=== PATIENT | female | born 1990 | race Caucasian/White ===

== ENCOUNTER → 2020-12-28 | Outpatient (CLI) | payer OTHER ==
--- NOTE | 2020-12-28 10:17 | REP ---
INDICATION: GROWTH, SIZE DATE DISCREPANCY COMPARISON: None. TECHNIQUE: Transabdominal obstetrical ultrasound with color Doppler evaluation. FINDINGS: Examination demonstrates a single live intrauterine in cephalic presentation. motion is identified by technologist. Placenta is noted anterior and grade 2 without evidence for placenta previa or abruption. Amniotic fluid volume is normal. Cervix measures 4.2 cm in length and appears closed.. Selected gestational age: 29 weeks 6 days with MAYKEL 03/09/2021. Gestational age by current measurements 30 weeks 2 days with MAYKEL 03/06/2021. FHR equals 138 beats per minute. BPD: 7.5 cm at 30 weeks 0 days HC: 27.7 cm at 30 weeks 2 days AC: 26.6 cm at 30 weeks 5 days FL: 5.6 cm at 29 weeks 4 days HL: 5.3 cm at 30 weeks 5 days HC/AC: 1.04 Estimated weight 1541 grams (52ndpercentile). HUMBLE: 12.5 cm Umbilical artery SD ratio: 2.11 (1.97-4.12) IMPRESSION: Single live intrauterine in cephalic presentation demonstrating appropriate estimated weight and growth. <Electronically signed by Marquise Tolbert > 12/28/20 1019
== END ==
LOC: M WHC 08:58
PROVIDERS: ATTEND Obstetrics & Gynecology
DX: O26.843 Uterine size-date discrepancy, third trimester (principal); Z3A.29 29 weeks gestation of pregnancy

== ENCOUNTER → 2020-12-28 | Outpatient (CLI) | payer OTHER ==
[2020-12-28 14:04] LABS: HEMATOCRIT 33.3 % (36.0-47.0); HEMOGLOBIN 10.8 g/dl (12.0-15.5); MEAN CORPUSCULAR HGB CONC 32.4 g/dl (32.0-36.5); MEAN CORPUSCULAR VOLUME 89.3 fl (80.0-96.0); PLATELET COUNT, AUTOMATED 214 10^3/uL (150-450); RED BLOOD COUNT 3.73 10^6/uL (4.00-5.40); WHITE BLOOD COUNT 8.5 10^3/uL (4.0-10.0)
[2020-12-28 15:37] LABS: GC DNA AMPLIFICATION NEGATIVE (NEGATIVE)
== END ==
LOC: M PLALAB 09:55
PROVIDERS: ATTEND Obstetrics & Gynecology
DX: Z34.93 Encounter for supervision of normal pregnancy, unspecified, third trimester (principal); Z3A.29 29 weeks gestation of pregnancy

== ENCOUNTER → 2021-01-29 | Outpatient (CLI) | payer OTHER ==
[~2021-01-29] MED LIST: ACET-683 PO; COLA100C5 PO; IBUP-1022 PO
== END ==
LOC: M WHC 12:00
PROVIDERS: ATTEND Advanced Practice Midwife
DX: O46.90 Antepartum hemorrhage, unspecified, unspecified trimester (principal); Z3A.34 34 weeks gestation of pregnancy

== ENCOUNTER → 2021-02-08 | Outpatient (REF) | payer OTHER ==
[2021-02-08 20:31] LABS: GC DNA AMPLIFICATION NEGATIVE (NEGATIVE)
== END ==
LOC: M SFHCWAGY 16:41
PROVIDERS: ATTEND Obstetrics & Gynecology
DX: Z34.83 Encounter for supervision of other normal pregnancy, third trimester (principal)

== ENCOUNTER 2021-02-18 03:35 | Inpatient (IN) | payer OTHER ==
[~2021-02-18] VITALS: Ht 157.5 cm; Wt 66.2 kg
[2021-02-18] VITALS (32 sets, daily range): BP systolic 93–125; BP diastolic 52–82
[2021-02-18] MEDS ORDERED: LACTATED RINGER'S 1000 ML IV STA (04:07)
[2021-02-18] MEDS ORDERED: PENICILLIN G POTASSIUM IV 5 MU in D5W MINI-BAG PLUS 100 ML IV STA (04:07)
[2021-02-18] MEDS ORDERED: LR 1,000 ML IV SCH (04:10)
[2021-02-18 04:24] LABS: HEMATOCRIT 36.6 % (36.0-47.0); HEMOGLOBIN 11.8 g/dl (12.0-15.5); MEAN CORPUSCULAR HGB CONC 32.2 g/dl (32.0-36.5); MEAN CORPUSCULAR VOLUME 80.8 fl (80.0-96.0); PLATELET COUNT, AUTOMATED 231 10^3/uL (150-450); RED BLOOD COUNT 4.53 10^6/uL (4.00-5.40); WHITE BLOOD COUNT 9.8 10^3/uL (4.0-10.0)
[2021-02-18] MEDS ORDERED: FENTANYL 2MCG/ML ROPIVACAINE 0.2% IN 0.9% NACL 100ML IVBAG As Ordered ONE (04:31)
[2021-02-18] MEDS ORDERED: OXYTOCIN 30 UNITS IN 0.9% NaCl 500ML IV BAG (J2590) As Ordered ONE (05:22)
[2021-02-18] MEDS ORDERED: EPIDURAL/PCA KEYS XX PRN (05:25)
[2021-02-18] MEDS ORDERED: diphenhydrAMINE 50MG/ML VIAL (J1200) IV PRN (05:25)
[2021-02-18] MEDS ORDERED: EPIDURAL COMMENT XX SCH (05:25)
[2021-02-18] MEDS ORDERED: ePHEDrine SULFATE 25 MG/5 ML(5MG/ML) SYRINGE IV PRN (05:25)
[2021-02-18] MEDS ORDERED: ONDANSETRON 4MG/2ML VIAL IV PRN (05:25)
[2021-02-18] MEDS ORDERED: NALOXONE INJ 0.4MG/1ML VIAL (J2310 PER 1MG) IV PRN (05:25)
[2021-02-18] MEDS ORDERED: FENTANYL/ROPIVACAINE/NACL BAG 100 ML EPIDURAL SCH (05:25)
[2021-02-18] MEDS ORDERED: REFRIGERATOR IV KEYS XX PRN (05:25)
[2021-02-18] MEDS ORDERED: LACTATED RINGER'S 1000 ML IV PRN (05:25)
[2021-02-18] MEDS ORDERED: METHYLERGONOVINE MALEATE 0.2 MG TAB PO PRN (07:45)
[2021-02-18] MEDS ORDERED: RHOGAM 300 MCG (1500 IU) INJ (J2790) IM SCH (07:45)
[2021-02-18] MEDS ORDERED: OXYTOCIN DRIP 30 UNITS in IV 1 EA IV ONE (07:45)
[2021-02-18] MEDS ORDERED: MEASLES,MUMPS,RUBELLA VACCINE INJ (MMR-II) (90707) SC SCH (07:45)
[2021-02-18] MEDS ORDERED: DOCUSATE SODIUM 100MG CAPSULE PO PRN (07:45)
[2021-02-18] MEDS ORDERED: DIBUCAINE 1% OINTMENT 30GM TOP PRN (07:45)
[2021-02-18] MEDS ORDERED: IBUPROFEN 600MG TAB PO PRN (07:45)
[2021-02-18] MEDS ORDERED: ACETAMINOPHEN TAB 650MG DOSE (2X325MG) PO PRN (07:45)
[2021-02-18] MEDS ORDERED: PENICILLIN G POTASSIUM IV 2.5 MU in IV 1 EA IV SCH (08:00)
[2021-02-18] MEDS: PRENATAL VITAMINS CHEWABLE TABLET PO SCH (08:24)
[2021-02-18] MEDS: IBUPROFEN 800 MG TAB PO PRN ×2 (08:25→19:32)
[2021-02-18] MEDS: ACETAMINOPHEN 500 MG TAB PO PRN (14:54)
[2021-02-19] MEDS: IBUPROFEN 800 MG TAB PO PRN ×2 (03:53→11:22)
[2021-02-19 06:00] VITALS: BP 110/55
[2021-02-19] MEDS: PRENATAL VITAMINS CHEWABLE TABLET PO SCH (08:19)
[2021-02-19] MEDS: ACETAMINOPHEN 500 MG TAB PO PRN (17:05)
[2021-02-19 17:55] VITALS: BP 111/58
[2021-02-20] MEDS: IBUPROFEN 800 MG TAB PO PRN (04:38)
[2021-02-20 06:00] VITALS: BP 114/68
[2021-02-20] MEDS: PRENATAL VITAMINS CHEWABLE TABLET PO SCH (09:00)
[2021-02-20 09:30] VITALS: BP 114/68
[2021-02-20] MEDS: ACETAMINOPHEN 500 MG TAB PO PRN (09:38)
[2021-02-20] MEDS ORDERED: ACET-683 PO (10:55)
[2021-02-20] MEDS ORDERED: COLA100C5 PO (10:55)
[2021-02-20] MEDS ORDERED: IBUP-1022 PO (10:55)
== END 2021-02-20 15:00 | disposition home or self-care (01) | DRG 560 ==
LOC: M LDO 03:35 → M LDI 04:05 → M OBS 10:57
PROVIDERS: ADMIT Specialist; ATTEND Specialist
PROC: 10E0XZZ Delivery of Products of Conception, External Approach (ICD-10-PCS; principal; 2021-02-18)
PROC: 10907ZC Drainage of Amniotic Fluid, Therapeutic from Products of Conception, Via Natural or Artificial Opening (ICD-10-PCS; 2021-02-18)
DX: O80 Encounter for full-term uncomplicated delivery (principal); Z37.0 Single live birth; Z3A.37 37 weeks gestation of pregnancy